=== PATIENT | female | born 1995 | race African-American/Black ===

== ENCOUNTER → 2017-06-08 | Outpatient (CLI) | payer OTHER ==
[~2017-06-08] MED LIST: AMOXICILLIN500 MG PO; SINGULAIR10 MG PO; ZITHROMAX Z PA250 MG PO; ZYRTEC10 MG PO
[2017-06-09 06:20] LABS: ANTI-STREPTOLYSIN O AB 006031 <20.0 IU/mL (0.0-200.0); IMMUNOGLOBULIN G, QNT 1315 mg/dL (700-1600); IMMUNOGLOBULIN M, QNT 141 mg/dL (26-217)
[2017-06-09 15:17] LABS: EBV NUCLEAR ANTIGEN IGG >600.0 U/mL (0.0-17.9); EPSTEIN-BARR VCA IGG AB >600.0 U/mL (0.0-17.9); EPSTEIN-BARR VCA IGM AB <36.0 U/mL (0.0-35.9)
== END | disposition home or self-care (01) ==
LOC: LAB 16:26
PROVIDERS: Pediatrics
DX: Z00.00 Encounter for general adult medical examination without abnormal findings (principal)

== ENCOUNTER → 2018-07-23 | Outpatient (CLI) | payer OTHER ==
--- NOTE | ~2018-07-23 | EKG ---
[place], [place] ELECTROCARDIOGRAM REPORT NAME: HALLE LUCIANO UNIT #: [id number] ROOM: DOCTOR: EPIPHANY DRAFT REPORT BIRTHDATE: [birth year] [facility] Test Date: 2018-07-23 Test Time: 16:52:17 Pat Name: HALLE LUCIANO Department: OPF Room: Gender: F [employer] Supervisor: EKG.[place] : 1995 Requested By: TAPAN MEDEROS Order Number: [id number] Reading MD: Chuy Flores MD Measurements Intervals [place] Rate: 63 P: 43 [place]: 130 QRS: 82 QRSD: 100 T: 45 QT: 406 QTc: 416 Interpretive Statements Sinus rhythm Borderline Q waves in inferior leads Electronically Signed On 07-25-2018 15:40:25 PDT by Chuy Flores MD CM:EKGRPT:ELECTROCARDIOGRAM REPORT [id number] TAPAN RAMESH DRAFT REPORT TAPAN MEDEROS MD
[2018-07-23 16:51] LABS: BASO % 0.4 % (0.0-1.0); EOS % 0.2 % (1.0-4.0); HEMATOCRIT 41.4 % (37.0-47.0); HEMOGLOBIN 13.1 g/dl (12.0-16.0); LYMPH # 1.8 10*3/uL (1.3-4.4); LYMPH % 18.6 % (27.0-41.0); MEAN CELL VOLUME 90.2 fl (81.0-99.0); MEAN CORPUSCULAR HGB 28.5 pg (27.0-31.0); MEAN CORPUSCULAR HGB CONC 31.6 g/dl (33.0-37.0); MEAN PLATELET VOLUME 11.2 fl (9.6-12.3); MONO # 0.4 10*3/uL (0.1-1.0); NEUT # 7.6 10*3/uL (2.3-7.9); NEUT % 76.6 % (47.0-73.0); PLATELET COUNT AUTOMATED 256 10*3/uL (130-400); RED BLOOD COUNT 4.59 10*6/uL (4.10-5.10); RED CELL DISTRI WIDTH 12.9 % (0-14.5); WHITE BLOOD COUNT 9.9 10*3/uL (4.8-10.8)
[2018-07-23 16:59] LABS: URINE AMPHETAMINES < 1000 (1000ng/ml); URINE BARBITURATES < 200 (200ng/ml); URINE BENZODIAZEPINES < 200 (200ng/ml); URINE CANNABINOIDS (THC) < 50 (50ng/ml); URINE COCAINE < 300 (300ng/ml); URINE METHADONE < 300 (300ng/ml); URINE OPIATES < 300 (300ng/ml)
[2018-07-23 17:00] LABS: URINE PHENCYCLIDINE < 25 (25ng/ml)
[2018-07-23 17:10] LABS: ALBUMIN 4.1 gm/dl (3.1-4.5); ALKALINE PHOSPHATASE 57 U/L (45-117); BUN 9 mg/dl (7-24); CHLORIDE 107 mmol/L (98-107); CHOLESTEROL 139 mg/dL (<200); CREATININE 0.98 mg/dL (0.55-1.02); HDL CHOLESTEROL 53 mg/dl (40-60); LDL CHOLESTEROL 67 mg/dL (9-159); SGOT/AST 12 IU/L (3-35); SGPT/ALT 15 U/L (12-78); SODIUM 141 mmol/L (136-145); TOTAL PROTEIN 8.3 gm/dL (6.4-8.2); TRIGLYCERIDES 95 mg/dl (<150); VLDL CHOLESTEROL 19 mg/dL (6-40)
[2018-07-23 17:12] LABS: B-hCG (QUALITATIVE) NEGATIVE (NEGATIVE)
== END | disposition home or self-care (01) ==
LOC: LAB 16:30
PROVIDERS: Pediatrics
DX: R55 Syncope and collapse (principal)